=== PATIENT | male | born 1940 | race Two or more races ===

== ENCOUNTER 2022-05-08 09:58 | Outpatient (REF) | payer MEDICARE, SELFPAY ==
[2022-05-08 11:59] LABS: Vitamin B12 564 pg/mL (200-900)
== END 2022-05-08 09:59 | disposition home or self-care (01) ==
LOC: HO.LAB 09:58
PROVIDERS: PCP Hospitalist; Visit Provider Psychiatry & Neurology Neurology
DX: G30.9 Alzheimer's disease, unspecified (principal)
CPT/HCPCS: 36415; 82607